=== PATIENT | male | born 1980 | race Caucasian/White ===

== ENCOUNTER 2024-03-17 14:30 | Emergency (ER) | payer MEDICAID ==
[~2024-03-17] VITALS: Ht 165.1 cm; Wt 74.8 kg
[~2024-03-17 14:30] MED LIST: AMOCLA875 PO; HYDACE5 PO; NAPR500 PO; RXCLIN PO; RXHYDACE PO
== END 2024-03-17 17:45 | disposition home or self-care (01) ==
LOC: ER 14:30
DX: J06.9 Acute upper respiratory infection, unspecified (principal); H69.93 Unspecified Eustachian tube disorder, bilateral
CPT/HCPCS: 71046; 99283-25

== ENCOUNTER 2024-04-06 22:49 | Emergency (ER) | payer MEDICAID ==
[~2024-04-06] VITALS: Ht 177.8 cm; Wt 70.3 kg
[2024-04-07 00:24] LABS: CORONAVIRUS COVID-19 AG Negative (NEGATIVE); INFLUENZA A AG Negative (NEGATIVE); INFLUENZA B AG Negative (NEGATIVE)
[2024-04-07] MEDS ORDERED: BENZ100A PO (00:54)
== END 2024-04-07 01:00 | disposition home or self-care (01) ==
LOC: ER 22:49
PROVIDERS: Physician Assistant
DX: J06.9 Acute upper respiratory infection, unspecified (principal); J40 Bronchitis, not specified as acute or chronic
CPT/HCPCS: 71046; 87428-QW; 99284-25

== ENCOUNTER 2024-09-28 14:11 | Emergency (ER) | payer OTHER ==
[~2024-09-28] VITALS: Ht 162.6 cm; Wt 70.3 kg
[~2024-09-28 14:11] MED LIST changes: +BENZ100A PO
== END 2024-09-28 15:15 | disposition home or self-care (01) ==
LOC: ER 14:11
DX: S92.511A Displaced fracture of proximal phalanx of right lesser toe(s), initial encounter for closed fracture (principal); Z79.2 Long term (current) use of antibiotics; Z79.899 Other long term (current) drug therapy; W22.09XA Striking against other stationary object, initial encounter
CPT/HCPCS: 73630